=== PATIENT | male | born 1995 | race American Indian/Alaskan Native ===

== ENCOUNTER 2019-07-27 16:35 | Emergency (ER) | payer SELFPAY ==
[2019-07-27 16:38] VITALS: BP 142/88
--- NOTE | 2019-07-27 18:06 | Emergency Department Report ---
Chief Complaint: Urogenital-Male Stated Complaint: CHECK UP Time Seen by Provider: 07/27/19 18:01 - HPI History of Present Illness: This is a 24 y.o. M. that presents to the ER for a check up for STD and physical. Denies n/v/d, urinary frequency, urgency, dysuria, testicular swelling/pain, penile discharge, fever, or chills. - ROS Review of Systems: General: STD screening All symptoms reviewed and no complaints. - Exam Vital Signs: Vital Signs 07/27/19 16:37 Temperature 98.6 F Pulse Rate 87 Respiratory 18 Rate Blood Pressure 142/88 O2 Sat by Pulse 100 Oximetry Physical Exam: General Limitations: No Limitations General appearance: alert, in no apparent distress - Respiratory Respiratory exam: Present: normal lung sounds bilaterally. Absent: respiratory distress, wheezes, rales, rhonchi - Cardiovascular Cardiovascular Exam: Present: regular rate, normal rhythm, normal heart sounds. Absent: systolic murmur, diastolic murmur, rubs, gallop - GI/Abdominal GI/Abdominal exam: Present: soft, normal bowel sounds. Absent: tenderness, distended, guarding, rebound, rigid - Extremities Exam Extremities exam: Present: normal inspection - Back Exam Back exam: Present: normal inspection - Neurological Exam Neurological exam: Present: alert, oriented X3 - Psychiatric Psychiatric exam: Present: normal affect, normal mood - Skin Skin exam: Present: warm, dry, intact, normal color. Absent: rash MSE screening note: Focused history and physical exam performed. Due to findings the following was ordered: ED Medical Decision Making - Medical Decision Making This is a 24 y.o. M. that presents to the ER for STD screening. Vitals are stable. Patient is nontoxic appearing and in no acute distress. Vitals are stable. Abdomen is nontender, negative CVA tenderness. Patient denies n/v/d, urinary frequency, urgency, dysuria, testicular swelling/pain, penile discharge, fever, or chills. This is a non-emergent complaint. Patient given a list of PCP to follow up with. Patient discharged home stable. ED Disposition for MSE Disposition: MED SCREENING EXAM-LEFT Condition: Stable Instructions: Sexually Transmitted Diseases (ED) Referrals: [facility] [Outside] - 3-5 Days [facility] [Outside] - 3-5 Days [facility] [Outside] - 3-5 Days JERROD KOTHARI MD [Staff Physician] - 3-[address] [facility] [Outside] - 3-5 Days Time of Disposition: 18:02
== END 2019-07-27 18:52 | disposition left against medical advice (07) ==
LOC: ED 16:35
DX: A64 Unspecified sexually transmitted disease (principal)
CPT/HCPCS: 99281

== ENCOUNTER 2021-04-25 12:45 | Emergency (ER) | payer SELFPAY ==
[2021-04-25 12:54] VITALS: BP 142/81
[2021-04-25] MEDS ORDERED: ONDANSETRON 4 MG ODT TAB PO ONE (13:01)
[2021-04-25] MEDS ORDERED: HYOSCYAMINE SUBL 0.125 MG TAB SL ONE (13:01)
[2021-04-25] MEDS ORDERED: ALUM-MAG HYDROXIDE-SIMETHICONE 200-200-20MG/5ML ORAL LIQD 30 ML PO ONE (13:01)
--- NOTE | 2021-04-25 13:03 | Emergency Department Report ---
ED General Adult HPI - General Chief complaint: Abdominal Pain Stated complaint: ABDOMINAL PAIN Time Seen by Provider: 04/25/21 12:56 Source: patient Mode of arrival: Ambulatory Limitations: No Limitations - History of Present Illness Initial comments: Patient is a 26-year-old male who presents emergency room with complaints of abdominal discomfort over the last several days. He states it feels like there is a "rumbling in his upper abdomen." He states that occasionally it gets worse after eating. He states that it makes him feel like he does not want to eat. He denies any nausea, vomiting, diarrhea, urinary symptoms, hematochezia, melena, hematemesis. He states he is having normal bowel movements. No past medical history. No allergies medications. He endorses marijuana use. - Related Data Previous Rx's Medication Instructions Recorded Last Taken Type Famotidine [Pepcid] 40 mg PO QHS #30 tablet 04/25/21 Unknown Rx Sucralfate [Carafate] 1 gm PO ACHS 7 Days #21 tablet 04/25/21 Unknown Rx Allergies Allergy/AdvReac Type Severity Reaction Status Date / Time No Known Allergies Allergy Unverified 07/27/19 16:36 ED Review of Systems ROS: Stated complaint: ABDOMINAL PAIN Other details as noted in HPI Comment: All other systems reviewed and negative ED Past Medical Hx - Social History Smoking Status: Never Smoker Substance Use Type: Marijuana - Medications Home Medications: Home Medications Medication Instructions Recorded Confirmed Last Taken Type Famotidine [Pepcid] 40 mg PO QHS #30 tablet 04/25/21 Unknown Rx Sucralfate [Carafate] 1 gm PO ACHS 7 Days #21 tablet 04/25/21 Unknown Rx ED Physical Exam - General Limitations: No Limitations General appearance: alert, in no apparent distress - Head Head exam: Present: atraumatic, normocephalic - Eye Eye exam: Present: normal appearance - ENT ENT exam: Present: mucous membranes moist - Respiratory Respiratory exam: Present: normal lung sounds bilaterally. Absent: respiratory distress, wheezes, rales, rhonchi, stridor, chest wall tenderness, accessory muscle use, decreased breath sounds, prolonged expiratory - Cardiovascular Cardiovascular Exam: Present: regular rate, normal rhythm, normal heart sounds. Absent: systolic murmur, diastolic murmur, rubs, gallop - GI/Abdominal GI/Abdominal exam: Present: soft, normal bowel sounds. Absent: distended, tenderness, guarding, rebound, rigid - Neurological Exam Neurological exam: Present: alert, oriented X3 - Psychiatric Psychiatric exam: Present: normal affect, normal mood - Skin Skin exam: Present: warm, dry, intact ED Course Vital Signs 04/25/21 12:49 Temperature 98.1 F Pulse Rate 103 H Respiratory 16 Rate Blood Pressure 142/81 O2 Sat by Pulse 100 Oximetry ED Medical Decision Making - Lab Data Result diagrams: 04/25/21 13:14 04/25/21 13:14 Lab Results 04/25/21 04/25/21 Range/Units 13:14 13:14 WBC 5.8 (4.5-11.0) K/mm3 RBC 5.64 H (3.65-5.03) M/mm3 Hgb 16.9 H (11.8-15.2) gm/dl Hct 50.1 H (35.5-45.6) % MCV 89 (84-94) fl MCH 30 (28-32) pg MCHC 34 (32-34) % RDW 13.2 (13.2-15.2) % Plt Count 263 (140-440) K/mm3 Lymph % (Auto) 23.3 (13.4-35.0) % [place] % (Auto) 8.2 H (0.0-7.3) % Eos % (Auto) 0.8 (0.0-4.3) % Baso % (Auto) 0.5 (0.0-1.8) % Lymph # (Auto) 1.3 (1.2-5.4) K/mm3 [place] # (Auto) 0.5 (0.0-0.8) K/mm3 Eos # (Auto) 0.0 (0.0-0.4) K/mm3 Baso # (Auto) 0.0 (0.0-0.1) K/mm3 Seg Neutrophils % 67.2 (40.0-70.0) % Seg Neutrophils # 3.9 (1.8-7.7) K/mm3 Sodium 135 L (137-145) mmol/L Potassium 3.9 (3.6-5.0) mmol/L Chloride 97.2 L (98-107) mmol/L Carbon Dioxide 20 L (22-30) mmol/L Anion Gap 22 mmol/L BUN 12 (9-20) mg/dL Creatinine 0.8 (0.8-1.3) mg/dL Estimated GFR > 60 ml/min BUN/Creatinine Ratio 15 % Glucose 99 (75-100) mg/dL Calcium 9.5 (8.4-10.2) mg/dL Total Bilirubin 0.50 (0.1-1.2) mg/dL AST 13 (5-40) units/L ALT 12 (7-56) units/L Alkaline Phosphatase 77 (35-129) units/L Total Protein 8.9 H (6.3-8.2) g/dL Albumin 4.7 (3.9-5) g/dL Albumin/Globulin Ratio 1.1 % Lipase 16 (13-60) units/L - Medical Decision Making Patient is a 26-year-old male who presents emergency room with complaints of abdominal discomfort over the last several days. He states it feels like there is a "rumbling in his upper abdomen." He states that occasionally it gets worse after eating. He states that it makes him feel like he does not want to eat. He denies any nausea, vomiting, diarrhea, urinary symptoms, hematochezia, melena, hematemesis. He states he is having normal bowel movements. No past medical history. No allergies medications. He endorses marijuana use. No abdominal tenderness on exam, no guarding, no rebound, no rigidity, normal pulses, no peritoneal signs. Labs are stable. Patient given p.o. medications on the emergency department with improvement of his symptoms. He denies any pain currently. Advised patient to follow-up with primary care and GI. Discussed return precautions. Advised patient Please take medication as prescri bed. Follow-up with your primary care doctor. Follow-up with GI doctor. Return for any new or worsening symptoms. Critical care attestation.: If time is entered above; I have spent that time in minutes in the direct care of this critically ill patient, excluding procedure time. ED Disposition Clinical Impression: Abdominal pain Qualifiers: Abdominal location: generalized Qualified Code(s): R10.84 - Generalized abdominal pain Disposition: HOME / SELF CARE / HOMELESS Is pt being admited?: No Does the pt Need Aspirin: No Condition: Stable Instructions: Abdominal Pain, Adult, [id number] Additional Instructions: Please take medication as prescribed. Follow-up with your primary care doctor. Follow-up with GI doctor. Return for any new or worsening symptoms. Prescriptions: Famotidine [Pepcid] 40 mg PO QHS #30 tablet Sucralfate [Carafate] 1 gm PO ACHS 7 Days #21 tablet Referrals: JUANA LOERA MD [Primary Care Provider] - 2-3 Days [facility] [Provider Group] - 2-3 Days JERROD KOTHARI MD [Staff Physician] - 2-3 Days [facility] [Provider Group] - 2-3 Days Time of Disposition: 14:16 Print Language: ICELANDIC
[2021-04-25 13:43] LABS: Basophils % (Auto) 0.5 % (0.0-1.8); Eosinophils % (Auto) 0.8 % (0.0-4.3); Hematocrit 50.1 % (35.5-45.6); Hemoglobin 16.9 gm/dl (11.8-15.2); Lymphocytes # (Auto) 1.3 K/mm3 (1.2-5.4); Lymphocytes % (Auto) 23.3 % (13.4-35.0); Mean Corpuscular HGB Conc 34 % (32-34); Mean Corpuscular Volume 89 fl (84-94); Monocytes # (Auto) 0.5 K/mm3 (0.0-0.8); Monocytes % (Auto) 8.2 % (0.0-7.3); Platelet Count 263 K/mm3 (140-440); Red Blood Count 5.64 M/mm3 (3.65-5.03); Red Cell Distribution Width 13.2 % (13.2-15.2)
[2021-04-25 14:06] LABS: Alanine Aminotransferase 12 units/L (7-56); Albumin 4.7 g/dL (3.9-5); BUN/Creatinine Ratio 15; Blood Urea Nitrogen 12 mg/dL (9-20); Calcium 9.5 mg/dL (8.4-10.2); Hemolysis Index 8
== END 2021-04-25 14:34 | disposition home or self-care (01) ==
LOC: ED 12:45
DX: R10.10 Upper abdominal pain, unspecified (principal); F12.90 Cannabis use, unspecified, uncomplicated; Z79.899 Other long term (current) drug therapy
CPT/HCPCS: 36415; 80053; 83690; 85025; 99283; J3490; Q0162

== ENCOUNTER 2021-08-18 01:20 | Emergency (ER) | payer SELFPAY ==
[2021-08-18 01:23] VITALS: BP 138/82
[2021-08-18] MEDS ORDERED: LIDOCAINE VISCOUS 2% 15 ML ORAL LIQD PO ONE (03:38)
[2021-08-18] MEDS ORDERED: ALUM-MAG HYDROXIDE-SIMETHICONE 200-200-20MG/5ML ORAL LIQD 30 ML PO ONE (03:38)
--- NOTE | 2021-08-18 03:45 | Emergency Department Report ---
ED General Adult HPI - General Chief complaint: Nausea/Vomiting/Diarrhea Stated complaint: IBS SX Time Seen by Provider: 08/18/21 03:36 Source: patient, EMS Mode of arrival: Ambulatory Limitations: No Limitations - History of Present Illness Initial comments: Patient a 26-year-old male with history of IBS and GERD who presents for epigastric pain and abdominal pressure. For the past 2 days. Patient states symptoms started after eating beef. Symptoms are described as constant pressure radiating from abdomen to epigastric region. Patient is not on H2 or PPI. However patient is tolerating p.o. intake. Patient does endorse early satiety, gas, bloating, intermittent nausea. There is been no diarrhea, constipation, no shortness of breath, no dizziness or lightheadedness. Is been no fever or chills. Severity scale (0 -10): 8 - Related Data Previous Rx's Medication Instructions Recorded Last Taken Type Famotidine [Pepcid] 40 mg PO QHS #30 tablet 04/25/21 Unknown Rx Sucralfate [Carafate] 1 gm PO ACHS 7 Days #21 tablet 04/25/21 Unknown Rx Famotidine [Pepcid] 20 mg PO BID #30 tablet 08/18/21 Unknown Rx Allergies Allergy/AdvReac Type Severity Reaction Status Date / Time No Known Allergies Allergy Unverified 07/27/19 16:36 ED Review of Systems ROS: Stated complaint: IBS SX Other details as noted in HPI ED Past Medical Hx - Past Medical History Previous Medical History?: Yes Additional medical history: IBS - Surgical History Past Surgical History?: No - Social History Smoking Status: Never Smoker Substance Use Type: Marijuana - Medications Home Medications: Home Medications Medication Instructions Recorded Confirmed Last Taken Type Famotidine [Pepcid] 40 mg PO QHS #30 tablet 04/25/21 Unknown Rx Sucralfate [Carafate] 1 gm PO ACHS 7 Days #21 tablet 04/25/21 Unknown Rx Famotidine [Pepcid] 20 mg PO BID #30 tablet 08/18/21 Unknown Rx ED Physical Exam - General Limitations: No Limitations ED Course Vital Signs 08/18/21 01:22 Temperature 98 F Pulse Rate 80 Respiratory 16 Rate Blood Pressure 138/82 [Right] O2 Sat by Pulse 99 Oximetry ED Medical Decision Making - Lab Data Result diagrams: 08/18/21 04:15 08/18/21 04:15 Labs 08/18/21 08/18/21 04:15 04:15 WBC 6.1 RBC 5.61 H Hgb 17.3 H Hct 49.9 H MCV 89 MCH 31 MCHC 35 H RDW 13.4 Plt Count 256 Lymph % (Auto) 25.4 [place] % (Auto) 9.4 H Eos % (Auto) 0.3 Baso % (Auto) 0.6 Lymph # (Auto) 1.5 [place] # (Auto) 0.6 Eos # (Auto) 0.0 Baso # (Auto) 0.0 Seg Neutrophils % 64.3 Seg Neutrophils # 3.9 Sodium 136 L Potassium 3.9 Chloride 95.7 L Carbon Dioxide 20 L Anion Gap 24 BUN 11 Creatinine 0.8 Estimated GFR > 60 BUN/Creatinine Ratio 14 Glucose 69 L Calcium 9.4 Total Bilirubin 0.50 AST 16 ALT 14 Alkaline Phosphatase 77 Total Protein 9.1 H Albumin 4.9 Albumin/Globulin Ratio 1.2 Lipase 18 - Radiology Data Radiology results: report reviewed, image reviewed CHEST 2 VIEWS INDICATION: chest pain. COMPARISON: None. FINDINGS: Support devices: None. Heart: Within normal limits. Lungs/Pleura: No acute air space or interstitial disease. No significant pleural effusion. IMPRESSION: No acute findings. Signer Name: Dwayne Orozco MD Signed: 08/18/2021 4:25 AM Workstation Name: [id number] Transcribed By: ES Dictated By: Dwayne Orozco MD Electronically Authenticated By: Dwayne Orozco MD Signed Date/Time: 08/18/21424 DD/ 3 TD/TT: - Medical Decision Making Chest x-ray normal no opacities no infiltrate, labs noted. Patient advises pain is relieved with GI cocktail, plan DC to home with prescriptions. Follow-up primary care doctor in 2 to 3 days. Continue to hydrate. Return to emergency department should symptoms worsen. Patient verbalizes agreement and understanding with discharge plan. Patient DC'd home in stable condition at this time. Critical care attestation.: If time is entered above; I have spent that time in minutes in the direct care of this critically ill patient, excluding procedure time. ED Disposition Clinical Impression: GERD (gastroesophageal reflux disease) Qualifiers: Esophagitis presence: without esophagitis Qualified Code(s): K21.9 - Gastro-esophageal reflux disease without esophagitis Disposition: HOME / SELF CARE / HOMELESS Is pt being admited?: No Condition: Stable Instructions: Gastroesophageal Reflux Disease, Adult, [id number], Food Ch oices for Gastroesophageal Reflux Disease, Adult, [id number] Additional Instructions: Take medications as prescribed, hydrate as directed, GERD diet, follow-up with your doctor in 2 to 3 days. Return to emergency department should symptoms worsen. Prescriptions: Famotidine [Pepcid] 20 mg PO BID #30 tablet Referrals: FRANK CRUMP MD [Staff Physician] - 3-5 Days Forms: Work/School Release Form(ED) Time of Disposition: 05:30
--- NOTE | 2021-08-18 04:29 | XRay Report ---
CHEST 2 VIEWS INDICATION: chest pain. COMPARISON: None. FINDINGS: Support devices: None. Heart: Within normal limits. Lungs/Pleura: No acute air space or interstitial disease. No significant pleural effusion. IMPRESSION: No acute findings. Signer Name: Dwayne Orozco MD Signed: 08/18/2021 4:25 AM Workstation Name: [id number]
[2021-08-18 04:41] LABS: Basophils % (Auto) 0.6 % (0.0-1.8); Eosinophils % (Auto) 0.3 % (0.0-4.3); Hematocrit 49.9 % (35.5-45.6); Hemoglobin 17.3 gm/dl (11.8-15.2); Lymphocytes # (Auto) 1.5 K/mm3 (1.2-5.4); Lymphocytes % (Auto) 25.4 % (13.4-35.0); Mean Corpuscular HGB Conc 35 % (32-34); Mean Corpuscular Volume 89 fl (84-94); Monocytes # (Auto) 0.6 K/mm3 (0.0-0.8); Monocytes % (Auto) 9.4 % (0.0-7.3); Platelet Count 256 K/mm3 (140-440); Red Blood Count 5.61 M/mm3 (3.65-5.03); Red Cell Distribution Width 13.4 % (13.2-15.2)
[2021-08-18 04:49] LABS: Alanine Aminotransferase 14 units/L (7-56); Albumin 4.9 g/dL (3.9-5); BUN/Creatinine Ratio 14; Blood Urea Nitrogen 11 mg/dL (9-20); Calcium 9.4 mg/dL (8.4-10.2); Hemolysis Index 10
== END 2021-08-18 05:50 | disposition home or self-care (01) ==
LOC: ED 01:20
DX: K21.9 Gastro-esophageal reflux disease without esophagitis (principal)
CPT/HCPCS: 36415; 71046; 80053; 83690; 85025; 99284

== ENCOUNTER 2021-11-29 17:00 | Emergency (ER) | payer SELFPAY ==
--- NOTE | 2021-11-30 00:33 | Emergency Department Report ---
ED Back Pain/Injury HPI - General Chief Complaint: Back Pain/Injury Stated Complaint: BACK PAIN Time Seen by Provider: 11/30/21 00:15 Source: patient Limitations: No Limitations - History of Present Illness Initial Comments: 26-year-old male presents emerged department complaining of lower abdominal pain which started a couple days ago after he was helping his uncle pushed her car into the garage. Pain is associated with dull and throbbing discomfort worsens with palpation range of motion and certain positions and alleviated by [id number] medications. He reports no numbness, no tingling, no loss of bowel or bladder, saddle paresthesia.. MD Complaint: back pain -: Gradual Similar Symptoms Previously: No Severity: mild Quality: dull Consistency: constant Improves With: none Worsens With: none - Related Data Previous Rx's Medication Instructions Recorded Last Taken Type Famotidine [Pepcid] 40 mg PO QHS #30 tablet 04/25/21 Unknown Rx Sucralfate [Carafate] 1 gm PO ACHS 7 Days #21 tablet 04/25/21 Unknown Rx Famotidine [Pepcid] 20 mg PO BID #30 tablet 08/18/21 Unknown Rx Allergies Allergy/AdvReac Type Severity Reaction Status Date / Time No Known Allergies Allergy Unverified 07/27/19 16:36 ED Review of Systems ROS: Stated complaint: BACK PAIN Other details as noted in HPI Constitutional: denies: chills, fever Eyes: denies: eye pain, eye discharge, vision change ENT: denies: ear pain, throat pain Respiratory: denies: cough, shortness of breath, wheezing Cardiovascular: denies: chest pain, palpitations Endocrine: no symptoms reported Gastrointestinal: denies: abdominal pain, nausea, diarrhea Genitourinary: denies: urgency, dysuria Musculoskeletal: denies: back pain, joint swelling, arthralgia Skin: denies: rash, lesions Neurological: denies: headache, weakness, paresthesias Psychiatric: denies: anxiety, depression Hematological/Lymphatic: denies: easy bleeding, easy bruising ED Past Medical Hx - Past Medical History Additional medical history: IBS - Surgical History Past Surgical History?: No - Social History Smoking Status: Never Smoker - Medications Home Medications: Home Medications Medication Instructions Recorded Confirmed Last Taken Type Famotidine [Pepcid] 40 mg PO QHS #30 tablet 04/25/21 Unknown Rx Sucralfate [Carafate] 1 gm PO ACHS 7 Days #21 tablet 04/25/21 Unknown Rx Famotidine [Pepcid] 20 mg PO BID #30 tablet 08/18/21 Unknown Rx ED Physical Exam - General Limitations: No Limitations General appearance: alert, in no apparent distress - Head Head exam: Present: atraumatic, normocephalic - Eye Eye exam: Present: normal appearance - ENT ENT exam: Present: mucous membranes moist - Neck Neck exam: Present: normal inspection - Respiratory Respiratory exam: Present: normal lung sounds bilaterally. Absent: respiratory distress - Cardiovascular Cardiovascular Exam: Present: regular rate, normal rhythm. Absent: systolic murmur, diastolic murmur, rubs, gallop - GI/Abdominal GI/Abdominal exam: Present: soft, normal bowel sounds - Rectal Rectal exam: Present: deferred - Extremities Exam Extremities exam: Present: normal inspection - Back Exam Back exam: Present: normal inspection, tenderness, muscle spasm, paraspinal tenderness. Absent: CVA tenderness (R), CVA tenderness (L) - Neurological Exam Neurological exam: Present: alert, oriented X3. Absent: CN II-XII intact, normal gait - Psychiatric Psychiatric exam: Present: normal affect, normal mood - Skin Skin exam: Present: warm, dry, intact, normal color. Absent: rash ED Course Vital Signs 11/29/21 17:47 Temperature 97.9 F Pulse Rate 73 Respiratory 14 Rate Blood Pressure 141/76 O2 Sat by Pulse 100 Oximetry Critical care attestation.: If time is entered above; I have spent that time in minutes in the direct care of this critically ill patient, excluding procedure time. ED Disposition Clinical Impression: Spasm of lumbar paraspinous muscle Disposition: HOME / SELF CARE / HOMELESS Is pt being admited?: No Does the pt Need Aspirin: No Condition: Stable Instructions: Muscle Cramps and Spasms, [id number], Back Injury Prevention, Back Injury Prevention, [id number] Referrals: RUDDY VALERA MD [Staff Physician] - 3-5 Days
[2021-11-30] MEDS ORDERED: IBUPROFEN 800 MG TAB PO ONE (01:12)
[2021-11-30 01:46] VITALS: BP 136/71
== END 2021-11-30 01:46 | disposition home or self-care (01) ==
LOC: ED 17:00
DX: M62.830 Muscle spasm of back (principal)
CPT/HCPCS: 99282